=== PATIENT | female | born 1980 | race Caucasian/White ===

== ENCOUNTER 2016-06-11 13:56 | Emergency (ER) | payer OTHER ==
--- NOTE | 2016-06-11 14:33 | ERPHSYRPT ---
- History of Present Illness Time Seen by Provider: 06/11/16 14:29 Historian: patient Exam Limitations: no limitations Patient Subjective Stated Complaint: PT COMPLAINS OF UPPER ABDOMINAL PAIN X 2 DAYS STATES SHE HAS HAD SOME VOMITING WITH THE PAIN DENIES FEVER. DENIES PROBLMES WITH URINATION PT STATES PAIN IS WORSE WHEN SHE IS STANDING DENIES ANY PAIN AT THIS TIME. Triage Nursing Assessment: PT ALERT WARM AND DRY RESP EASY NON LABORED PTMABULTED. TO ROOM WITHOTU DIFFICULTY ABDOMEN SOFT NON TEDNER ON PALPATION. Physician History: 35-year-old morbidly obese white female arrives with complaint of pain in the upper abdomen described as sharp and crampy symptoms going on for 2 days. Patient states she had vomited 2 times on Wednesday 2 days ago him 3 times today she has not had any fevers. She questions whether she has been constipated however she has been taking laxatives since Wednesday. Past medical history includes high blood pressure, anxiety, asthma, leg edema. Past surgical history patient denies social history positive tobacco use patient denies alcohol or illicit drug use Timing/Duration: day(s) (2days) Activities at Onset: none Quality: cramping, sharpness Abdominal Pain Onset Location: other (bilateral upper quadrants) Pain Radiation: no radiation Severity of Pain-Max: moderate Severity of Pain-Current: moderate Modifying Factors: Improves With: nothing Associated Symptoms: nausea, vomiting, No back, No chest pain, No diaphoresis, No diarrhea, No fever/chills, No fatigue, No headache, No heartburn, No loss of appetite, No neck pain, No rash, No shortness of breath, No syncope Previous symptoms: no prior history Allergies/Adverse Reactions: codeine Allergy (Verified 06/11/16 14:04) Sulfa (Sulfonamide Antibiotics) Allergy (Verified 06/11/16 14:04) Hx Tetanus, Diphtheria Vaccination/Date Given: Yes Hx Influenza Vaccination/Date Given: No Hx Pneumococcal Vaccination/Date Given: No Immunizations Up to Date: Yes - Review of Systems Constitutional: No Fever, No Chills Eyes: No Symptoms Ears, Nose, & Throat: No Symptoms Respiratory: No Cough, No Dyspnea Cardiac: No Chest Pain, No Edema, No Syncope Abdominal/Gastrointestinal: Abdominal Pain, Nausea, Vomiting, No Diarrhea, No Constipation, No Hematemesis, No Hematochezia, No Melena, No Dysphagia, No Appetite Changes Genitourinary Symptoms: No Dysuria Musculoskeletal: No Back Pain, No Neck Pain Skin: No Rash Neurological: No Dizziness, No Focal Weakness, No Sensory Changes Psychological: No Symptoms Endocrine: No Symptoms All Other Systems: Reviewed and Negative - Past Medical History Pertinent Past Medical History: Yes Respiratory History: Asthma Other Medical History: HTN ANXIETY ,AND "PROBLEMS WITH LEG SWELLING" - Past Surgical History Past Surgical History: No - Social History Smoking Status: Current every day smoker How long have you smoked: 1/2 PPD Exposure to second hand smoke: Yes Drug Use: none Patient Lives Alone: No - Female History Hx Last Menstrual Period: May - Nursing Vital Signs Nursing Vital Signs: Initial Vital Signs Temperature 98.3 F Temperature Source Oral Pulse Rate 105 Respiratory Rate 18 Blood Pressure [] 148/105 - Physical Exam General Appearance: no apparent distress, alert Eye Exam: PERRL/EOMI, eyes nml inspection Ears, Nose, Throat Exam: normal ENT inspection, pharynx normal, moist mucous membranes Neck Exam: normal inspection, non-tender, supple, full range of motion Respiratory Exam: normal breath sounds, lungs clear, No respiratory distress Cardiovascular Exam: regular rate/rhythm, normal heart sounds Gastrointestinal/Abdomen Exam: normal bowel sounds, tenderness (tender bilateral upper abdomen, morbidly obese, ) Back Exam: normal inspection, normal range of motion, No CVA tenderness, No vertebral tenderness Extremity Exam: normal inspection, normal range of motion, pelvis stable Neurologic Exam: alert, oriented x 3, cooperative, normal mood/affect, nml cerebellar function, sensation nml, No motor deficits Skin Exam: normal color, warm, dry SpO2 Interpretation: normal (93%) SpO2: 93 Oxygen Delivery: Room Air - Course Nursing assessment & vital signs reviewed: Yes - CT Exams Abdomen/Pelvis CT Interpretation: Discussed w/radiologist (CT abdomen and pelvis: Impression: 1. Limited CT abdomen and pelvis due to body habitus 2. Large abdominal/ pelvic ascites 3. Bilateral lymphadenopathy. Also several smaller periaortic l findings may be reactive but cannot exclude malignancy in the right clinical setting. 4. Incidental hiatal hernia, borderline cardiomegaly, tiny bibasilar effusions, and evidence for old granulomatous disease) Ordered Tests: Active Orders 24 hr Category Date Time Status IV Insertion STAT Care 06/11/16 14:28 Active ABDOMEN AND PELVIS W CONTRAST [CT] Stat Exams 06/11/16 15:45 Completed AMYLASE Stat Lab 06/11/16 14:37 Completed CBC W DIFF Stat Lab 06/11/16 14:37 Completed CMP Stat Lab 06/11/16 14:37 Completed HCG QUALITATIVE,SERUM Stat Lab 06/11/16 14:37 Completed LIPASE Stat Lab 06/11/16 14:37 Completed UA W/ MICROSCOPIC Stat Lab 06/11/16 14:30 Completed Lab/Rad Data: Laboratory Result Diagrams 06/11/16 14:37 06/11/16 14:37 Laboratory Results 06/11/16 06/11/16 06/11/16 Range/Units 14:37 14:37 14:37 WBC 13.1 H (4.0-10.5) K/mm3 RBC 5.51 H (4.1-5.4) M/mm3 Hgb 15.2 (12.0-16.0) gm/dl Hct 46.8 (35-47) % MCV 84.9 (78-100) fl MCH 27.5 (26-32) pg MCHC 32.5 (32-36) g/dl RDW 13.7 (11.5-14.0) % Plt Count 343 (150-450) K/mm3 MPV 11.4 H (6-9.5) fl Gran % 78.0 H (36.0-66.0) % Lymphocytes % 11.2 L (24.0-44.0) % Monocytes % 10.2 (0.0-12.0) % Eosinophils % 0.3 (0.00-5.0) % Basophils % 0.3 (0.0-0.4) % Basophils # 0.04 (0-0.4) Sodium ORE MIXER Potassium 3.6 (3.5-5.1) mEq/L Chloride 92 L (98-107) mEq/L BUN 10 (9-20) mg/dL Creatinine 0.89 (0.55-1.30) mg/dl Estimated GFR > 60 ML/MIN Glucose 110 (70-110) MG/DL Calcium 9.7 (8.5-10.1) mg/dL Total Bilirubin 0.4 (0.2-1.0) mg/dL AST 19 (15-37) U/L ALT 19 (12-78) U/L Alkaline Phosphatase 59 (46-116) U/L Serum Total Protein 7.4 (6.4-8.2) gm/dL Albumin 3.0 L (3.4-5.0) g/dL Amylase 31 (25-115) U/L Lipase 75 (73-393) U/L Serum , Qual NEGATIVE (Negative) Ur Collection Type Urine Color (YELLOW) Urine Appearance (CLEAR) Urine pH (5-6) Ur Specific H[place]bert (1.005-1.025) Urine Protein (Negative) Urine Glucose (UA) (NEGATIVE) mg/dL Urine Ketones (NEGATIVE) Urine Nitrite (NEGATIVE) Urine Bilirubin (NEGATIVE) Urine Urobilinogen (0-1) mg/dL Urine WBC (Auto) (NEGATIVE) Urine RBC (Auto) (0-5) Ramon/ul Urine Microscopic WBC (0-5) /HPF Ur Epithelial Cells (FEW) /HPF Urine Bacteria (NEGATIVE) /HPF Hyaline Casts (0-2) /LPF Urine Mucus (NEGATIVE) /HPF Specimen Received 06/11/16 Range/Units 14:30 WBC (4.0-10.5) K/mm3 RBC (4.1-5.4) M/mm3 Hgb (12.0-16.0) gm/dl Hct (35-47) % MCV (78-100) fl MCH (26-32) pg MCHC (32-36) g/dl RDW (11.5-14.0) % Plt Count (150-450) K/mm3 MPV (6-9.5) fl Gran % (36.0-66.0) % Lymphocytes % (24.0-44.0) % Monocytes % (0.0-12.0) % Eosinophils % (0.00-5.0) % Basophils % (0.0-0.4) % Basophils # (0-0.4) Sodium Potassium (3.5-5.1) mEq/L Chloride (98-107) mEq/L BUN (9-20) mg/dL Creatinine (0.55-1.30) mg/dl Estimated GFR ML/MIN Glucose (70-110) MG/DL Calcium (8.5-10.1) mg/dL Total Bilirubin (0.2-1.0) mg/dL AST (15-37) U/L ALT (12-78) U/L Alkaline Phosphatase (46-116) U/L Serum Total Protein (6.4-8.2) gm/dL Albumin (3.4-5.0) g/dL Amylase (25-115) U/L Lipase (73-393) U/L Serum , Qual (Negative) Ur Collection Type VOID Urine Color YELLOW (YELLOW) Urine Appearance CLOUDY (CLEAR) Urine pH 5.5 (5-6) Ur Specific H[place]bert 1.025 (1.005-1.025) Urine Protein 30 (Negative) Urine Glucose (UA) NEGATIVE (NEGATIVE) mg/dL Urine Ketones NEGATIVE (NEGATIVE) Urine Nitrite NEGATIVE (NEGATIVE) Urine Bilirubin SMALL (NEGATIVE) Urine Urobilinogen 1 (0-1) mg/dL Urine WBC (Auto) NEGATIVE (NEGATIVE) Urine RBC (Auto) NEGATIVE (0-5) Ramon/ul Urine Microscopic WBC 2-5 (0-5) /HPF Ur Epithelial Cells MANY (FEW) /HPF Urine Bacteria MANY (NEGATIVE) /HPF Hyaline Casts 25-50 (0-2) /LPF Urine Mucus SLIGHT (NEGATIVE) /HPF Specimen Received 06/11/16 1340 - Progress Progress: improved Progress Note: 06/11/16 17:48 This is a 35-year-old morbidly obese white female who has been having pain in her upper abdomen described as crampy in nature worse for the past 2 days she states she has had some vomiting she thought that she was constipated she took some laxatives however this has not helped her. She arrives she does not appear to be in acute distress however she is tender with palpation in the upper abdomen patient has a white count of 13.1 hemoglobin 15.2 hematocrit 46.8 platelets are 343 patient's chemistry is essentially normal sodium was not available secondary to the analyzer being down CT of the abdomen shows a limited CT of the abdomen and pelvis due to body habitus, a large abdominal/pelvic ascites, bilateral lymphadenopathy in several smaller. Aortic lymph nodes finding could be reactive but cannot completely exclude malignancy in the right clinical setting There is also an incidental hiatal hernia borderline cardiomegaly tiny by basilar effusions and evidence for old granulomatous disease I've discussed the case with Dr. Mccain the patient's doctor. He would like the patient to follow-up with him as soon as possible to workup the patient's ascites. He felt the patient could be released and follow-up with him Will have her call his office tomorrow to schedule an appointment. Patient does have a listed allergy to codeine patient states this made her hallucinate when she was in the eighth grade. Will write for Gaston for pain. - Departure Time of Disposition: 17:53 Departure Disposition: Home Clinical Impression: Abdominal pain Qualifiers: Abdominal location: upper abdomen, unspecified Qualified Code(s): R10.10 - Upper abdominal pain, unspecified Ascites Qualifiers: Ascites type: other type Qualified Code(s): R18.8 - Other ascites Condition: Fair Critical Care Time: No Instructions: Abdominal Pain-Adult Additional Instructions: Return home. Clear fluids only 24-48 hours if abdominal pain. Gaston 5/325 #12 one orally every 4-6 hours as needed for pain. Zofran 4 mg one orally every 4-6 hours as needed for nausea. Follow-up with Dr. Mccain call tomorrow morning for an appointment return for acute distress or for severe symptoms. . Prescriptions: Hydrocodone Bit/Acetaminophen [Gaston 5/325Mg] 1 tab PO Q4-6HPRN PRN #12 tablet PRN Reason: Pain Ondansetron [Zofran Odt] 4 mg PO Q4-6HPRN PRN #12 tab.rapdis PRN Reason: nausea and vomiting
[2016-06-11 14:48] LABS: Collection Type VOID
[2016-06-11 14:49] LABS: COMPLETE URINE MICROSCOPIC? YES; Ph 5.5 (5-6)
[2016-06-11 14:52] LABS: BASOPHIL % 0.3 % (0.0-0.4); Eosinophil % 0.3 % (0.00-5.0); Lymphocytes % 11.2 % (24.0-44.0); Mean Cell Volume 84.9 fl (78-100); Mean Platelet Volume 11.4 fl (6-9.5); Monocytes % 10.2 % (0.0-12.0); Platelet Count 343 K/mm3 (150-450); Red Blood Count 5.51 M/mm3 (4.1-5.4); Red Cell Distribution Width 13.7 % (11.5-14.0); White Blood Count 13.1 K/mm3 (4.0-10.5)
[2016-06-11 15:01] LABS: Mean Corpuscular Hemoglobin 27.5 pg (26-32)
[2016-06-11 15:10] LABS: Bacteria MANY /HPF (NEGATIVE); Epithelial Cells MANY /HPF (FEW); Mucus SLIGHT /HPF (NEGATIVE)
[2016-06-11 15:11] LABS: Hyaline Casts 25-50 /LPF (0-2)
[2016-06-11 15:24] LABS: ALKALINE PHOSPHATASE 59 U/L (46-116); BILIRUBIN,TOTAL 0.4 mg/dL (0.2-1.0); BLOOD UREA NITROGEN 10 mg/dL (9-20); Glucose 110 MG/DL (70-110); LIPASE 75 U/L (73-393); SGOT/AST 19 U/L (15-37); SGPT/ALT 19 U/L (12-78); Total Protein 7.4 gm/dL (6.4-8.2)
--- NOTE | 2016-06-11 17:10 | XRAY ---
Indication: Abdominal pain, heartburn, and vomiting. Multiple contiguous axial images obtained through the abdomen and pelvis using 100 cc Isovue 370 contrast only. Comparison: None Lung bases demonstrates right middle lobe medial infiltrate/atelectasis and calcified granuloma. Tiny bibasilar effusions. Right infrahilar calcified nodes. Heart is borderline enlarged. Small hiatal hernia. Images through the abdomen and pelvis markedly limited due to patient body habitus. There is large amount of abdominal/pelvic ascites. Tiny calcified splenic granulomas. Several small periaortic nodes, largest 10 x 13 mm. There are additional bilateral prominent lymph nodes, largest on the left measuring 2.2 x 3.1 cm. Noncontrasted stomach and bowel loops appear nonobstructed. Remaining liver, gallbladder, pancreas, spleen, adrenal glands, kidneys, ureters, bladder, uterus, and aorta appear unremarkable. Osseous structures intact with minimal degenerative changes throughout the spine. Impression: 1. Limited CT abdomen/pelvis exam due to body habitus. 2. Large abdominal/pelvic ascites. 3. Bilateral lymphadenopathy. Also several smaller periaortic lymph nodes. Findings may be reactive but cannot completely exclude malignancy in the right clinical setting. 4. Incidental hiatal hernia, borderline cardiomegaly, tiny bibasilar effusions, and evidence for old granulomatous disease. CTDI 28.13
[2016-06-11 17:31] LABS: CHLORIDE 92 mEq/L (98-107); Potassium 3.6 mEq/L (3.5-5.1)
[2016-06-11 18:05] VITALS: BP 131/81; PULSE 87; O2SAT 100
[2016-06-11 19:57] LABS: SODIUM 137 mEq/L (136-145)
== END 2016-06-11 18:04 | disposition home or self-care (01) ==
LOC: ED 13:56
DX: R10.10 Upper abdominal pain, unspecified (principal); R18.8 Other ascites; E66.01 Morbid (severe) obesity due to excess calories; R11.2 Nausea with vomiting, unspecified; K44.9 Diaphragmatic hernia without obstruction or gangrene
CPT/HCPCS: 36000; 36415; 74177; 80053; 81000; 82150; 83690; 84703; 85025; 99284

== ENCOUNTER 2016-09-16 18:52 | Emergency (ER) | payer OTHER ==
[2016-09-16 19:09] LABS: BASOPHIL % 0.1 % (0.0-0.4); Eosinophil % 0.1 % (0.00-5.0); Granulocytes % 86.9 % (36.0-66.0); Lymphocytes % 6.6 % (24.0-44.0); Mean Cell Volume 78.7 fl (78-100); Monocytes % 6.3 % (0.0-12.0); Platelet Count 440 K/mm3 (150-450); Red Blood Count 6.48 M/mm3 (4.1-5.4); Red Cell Distribution Width 18.8 % (11.5-14.0); White Blood Count 11.4 K/mm3 (4.0-10.5)
--- NOTE | 2016-09-16 19:15 | ERPHSYRPT ---
- History of Present Illness Time Seen by Provider: 09/16/16 18:53 Source: patient, EMS Exam Limitations: no limitations Patient Subjective Stated Complaint: pt states she became weak this morning and had trouble getting off of toilet. pt states she "rocked a little to hard and fell to floor on hands and kness." pt denies any injury from fall. states she has weakness. Triage Nursing Assessment: pt pale, warm, dry. lung sounds clear and equal during ems breathing treatment. lips dry. pt alert and oriented x3. pt afebrile. bilateral lower extremities warm to touch and swollen with redness. Occurred: this morning Reason for Fall: lost balance Injuries/Pain Location: no injury Loss of Consciousness: no loss of consciousness Severity of Pain-Max: none Severity of Pain-Current: none Modifying Factors: Improves With: other (Morbid obesity.) Associated Symptoms (Fall): shortness of breath (with chronic asthma) Allergies/Adverse Reactions: codeine Allergy (Verified 09/16/16 19:00) Sulfa (Sulfonamide Antibiotics) Allergy (Verified 09/16/16 19:00) Home Medications: Acetaminophen [Acetaminophen Extra Strength] 1,000 mg PO Q4-6HPRN PRN 09/16/16 [ History] Albuterol 8 gm Mdi Hfa [Ventolin Hfa MDI] 8 gm IH Q4H PRN PRN 09/16/16 [ History] Hctz/Triamterene 75/50 mg [Maxzide 75/50] 1 tab PO DAILY 09/16/16 [History] Omeprazole 20 MG [Prilosec 20 mg] 20 mg PO DAILY 09/16/16 [History] Paroxetine HCl [Paxil] 20 mg PO DAILY 09/16/16 [History] Spironolactone 100 mg PO DAILY 09/16/16 [History] Hx Tetanus, Diphtheria Vaccination/Date Given: Yes (up to date) Hx Influenza Vaccination/Date Given: No Hx Pneumococcal Vaccination/Date Given: No Immunizations Up to Date: Yes - Review of Systems Constitutional: No Symptoms Eyes: No Symptoms Ears, Nose, & Throat: No Symptoms Respiratory: Wheezing Cardiac: No Symptoms Abdominal/Gastrointestinal: No Symptoms Musculoskeletal: Fall Skin: No Symptoms Neurological: No Symptoms Psychological: No Symptoms Endocrine: No Symptoms Hematologic/Lymphatic: No Symptoms Immunological/Allergic: No Symptoms - Past Medical History Pertinent Past Medical History: Yes Respiratory History: Asthma Other Medical History: HTN ANXIETY ,AND "PROBLEMS WITH LEG SWELLING". ascites - Past Surgical History Past Surgical History: No Other Surgical History: liver biopsy - Social History Smoking Status: Current every day smoker How long have you smoked: 16 Exposure to second hand smoke: Yes Drug Use: none Patient Lives Alone: No - Female History Hx Last Menstrual Period: 2 months - Nursing Vital Signs Nursing Vital Signs: Initial Vital Signs Temperature 98.2 F Temperature Source Oral Pulse Rate 102 Respiratory Rate 20 Blood Pressure [Right Arm] 93/56 Pain Intensity 0 - [place] Coma Score Best Eye Response ([place]): (4) open spontaneously Best Verbal Response (Elizabet): (5) oriented Best Motor Response (Elizabet): (6) obeys commands [place] Total: 15 - Physical Exam General Appearance: no apparent distress Head Injury: no evidence of injury Eye Exam: PERRL/EOMI, eyes nml inspection ENT Exam: airway nml Neck Exam: supple, trachea midline, full range of motion, normal alignment Respiratory/Chest Exam: normal breath sounds Cardiovascular Exam: normal heart sounds, regular rate/rhythm, normal peripheral pulses, edema (severe brawny non-pitting edema) Gastrointestinal Exam: soft, normal bowel sounds, No tenderness Back Exam: normal inspection, normal range of motion Extremity Exam: normal range of motion, capillary refill <3 sec Neurologic Exam: alert, oriented x 3, cooperative Skin Exam: normal color, warm, dry SpO2 Interpretation: normal SpO2: 97 Oxygen Delivery: Room Air - Course Nursing assessment & vital signs reviewed: Yes EKG Interpreted by Me: RATE (96), Sinus Rhythm, NORMAL AXIS, Other (Low voltage with electrical spikes. No acute ischemia.) Ordered Tests: Active Orders 24 hr Category Date Time Status Cath for Specimen-Straight STAT Care 09/16/16 18:57 Active EKG-ER Only STAT Care 09/16/16 18:57 Active CHEST 1 VIEW (PORTABLE) Stat Exams 09/16/16 18:57 Ordered BNP [NT PRO BNP] Stat Lab 09/16/16 19:30 Received CBC W DIFF Stat Lab 09/16/16 19:00 Completed CK-Creatinine Phosphokinase Stat Lab 09/16/16 19:30 Received CMP Stat Lab 09/16/16 19:00 Completed HCG,QUALITATIVE URINE Stat Lab 09/16/16 19:03 Uncollected PROTIME WITH INR Stat Lab 09/16/16 19:00 Completed UA W/RFX UR CULTURE Stat Lab 09/16/16 18:57 Ordered Medication Summary Generic Name Dose Route Start Last Admin Trade Name Keyonna PRN Reason Stop Dose Admin Sodium Chloride 1,000 mls @ 999 mls/hr 09/16/16 20:41 09/16/16 20:50 Sodium Chloride 0.9% 1000 Ml IV 09/16/16 21:41 999 mls/hr .Q1H1M STA Administration Discontinued Medications Generic Name Dose Route Start Last Admin Trade Name Keyonna PRN Reason Stop Dose Admin Sodium Chloride Confirm 09/16/16 20:46 Sodium Chloride 0.9% 1000 Ml Administered 09/16/16 20:47 Dose 1,000 mls @ ud .ROUTE .STK-MED ONE Morphine Sulfate 2 mg 09/16/16 21:04 Morphine Sulfate 2 Mg Inj IV 09/16/16 21:05 STAT ONE Lab/Rad Data: Laboratory Result Diagrams 09/16/16 19:00 09/16/16 19:00 Laboratory Results 09/16/16 09/16/16 09/16/16 Range/Units 19:00 19:00 19:00 WBC 11.4 H (4.0-10.5) K/mm3 RBC 6.48 H* (4.1-5.4) M/mm3 Hgb 17.5 H (12.0-16.0) gm/dl Hct 51.0 H (35-47) % MCV 78.7 (78-100) fl MCH 27.0 (26-32) pg MCHC 34.3 (32-36) g/dl RDW 18.8 H (11.5-14.0) % Plt Count 440 (150-450) K/mm3 MPV 12.0 H (6-9.5) fl Gran % 86.9 H (36.0-66.0) % Lymphocytes % 6.6 L (24.0-44.0) % Monocytes % 6.3 (0.0-12.0) % Eosinophils % 0.1 (0.00-5.0) % Basophils % 0.1 (0.0-0.4) % Basophils # 0.01 (0-0.4) INR 1.11 (0.8-3.0) Sodium 127 L (136-145) mEq/L Potassium 5.9 H (3.5-5.1) mEq/L Chloride 92 L (98-107) mEq/L Carbon Dioxide 23.0 (21-32) mEq/L Anion Gap 18.2 H (5-15) MEQ/L BUN 68 H (9-20) mg/dL Creatinine 3.19 H (0.55-1.30) mg/dl Estimated GFR 17 ML/MIN Glucose 87 (70-110) MG/DL Calcium 8.4 L (8.5-10.1) mg/dL Total Bilirubin 0.40 (0.2-1.0) mg/dL AST 33 (15-37) U/L ALT 40 (12-78) U/L Alkaline Phosphatase 91 (46-116) U/L Serum Total Protein 5.6 L (6.4-8.2) gm/dL Albumin 1.8 L (3.4-5.0) g/dL - Progress Progress: improved Discussed with .: Other (Care transferred to Dr. Rachel who will make transfer arrangements.) Counseled pt/family regarding: lab results, diagnosis, need for follow-up, rad results - Departure Time of Disposition: 20:45 Departure Disposition: Transfer Clinical Impression: Hyponatremia, EMA (acute kidney injury), Hyperkalemia Morbid obesity Qualifiers: Obesity type: unspecified obesity type Qualified Code(s): E66.01 - Morbid ( severe) obesity due to excess calories Condition: Serious Critical Care Time: No Referrals: NINA MANRIQUEZ [Primary Care Provider] -
[2016-09-16 19:32] LABS: BILIRUBIN,TOTAL 0.4 mg/dL (0.2-1.0); Total Protein 5.6 gm/dL (6.4-8.2)
[2016-09-16 20:13] LABS: ALBUMIN 1.8 g/dL (3.4-5.0); ANION GAP 18.2 MEQ/L (5-15); Potassium 5.9 mEq/L (3.5-5.1)
[2016-09-16 20:21] LABS: INR 1.11 (0.8-3.0); PROTIME 12.5 SECONDS (9.95-12.35)
[2016-09-16] MEDS ORDERED: Sodium Chloride 0.9% 1000 ML 1,000 ML IV STA (20:41)
[2016-09-16] MEDS ORDERED: Sodium Chloride 0.9% 1000 ML 1,000 ML ONE (20:46)
[2016-09-16] MEDS ORDERED: MORPHINE SULFATE 2 MG INJ IV ONE (21:04)
[2016-09-16] MEDS ORDERED: MORPHINE SULFATE 2 MG INJ ONE (21:11)
[2016-09-16 21:19] VITALS: O2SAT 96
[2016-09-16 21:28] LABS: Bacteria FEW /HPF (NEGATIVE); COMPLETE URINE MICROSCOPIC? YES; Collection Type CATH; Epithelial Cells FEW /HPF (FEW); Mucus MODERATE /HPF (NEGATIVE)
[2016-09-16 21:29] LABS: ADD URINE CULTURE? NO (NO)
[2016-09-16 22:03] VITALS: BP 92/52; PULSE 114
--- NOTE | 2016-09-17 08:50 | XRAY ---
Indication: Dyspnea. Comparison: June 12, 2016. Portable chest again demonstrates mediastinal and pulmonary calcified granulomas. No focal infiltrate, consolidation, or large effusion. Heart is not enlarged for AP portable technique. Vascularity normal. Bony thorax intact. Impression: Nonacute chest. Again evidence for old granulomatous disease.
== END 2016-09-16 22:38 | disposition short-term general hospital (02) ==
LOC: ED 18:52
DX: E87.1 Hypo-osmolality and hyponatremia (principal); N17.9 Acute kidney failure, unspecified; E87.5 Hyperkalemia; E66.01 Morbid (severe) obesity due to excess calories
CPT/HCPCS: 36415; 71010; 80053; 81000; 82550; 83880; 84703; 85025; 85610; 93005; 96360; 99285; J2270; P9612

== ENCOUNTER 2016-10-04 22:32 | Emergency (ER) | payer OTHER ==
--- NOTE | 2016-10-04 23:33 | ERPHSYRPT ---
- History of Present Illness Time Seen by Provider: 10/04/16 23:28 Source: patient Exam Limitations: no limitations Patient Subjective Stated Complaint: C/O INTERMITENT SOB/RESP DISTRESS WORSE AROUND 2100 CALLED EMS BUT JUST PRIOR PT TOOK ONE DUEONEB AT HOME AND ONE PUFF FROM HER INHALIER, WANTED TO GO TO [facility] BUT CHANGED HER MIND AND REQUESTED MICHAEL. Triage Nursing Assessment: C/O INTERMITENT SOB/RESP DISTRESS WORSE AROUND 2100 CALLED EMS BUT JUST PRIOR PT TOOK ONE DUEONEB AT HOME AND ONE PUFF FROM HER INHALIER, WANTED TO GO TO [facility] BUT CHANGED HER MIND AND REQUESTED MICHAEL. DC'D FROM [facility] AFTER 2 WEEK INPT STAY LAST WEDNESDAY. AOX3, PATIENT VERY ANXIOUS, RESTING MUCH BETTER AT THIS TIME. ALSO C/O NAUSEA AND DIARRHEA FOR 3+ WEEKS, DIALYSIS PT TIFFANIE [place], [place] Physician History: 35-year-old morbidly obese white female with history of high blood pressure, asthma, anxiety, leg edema, ascites, who is on dialysis 3 times a week arrives with complaint of shortness of breath feeling "woozy symptoms since yesterday after receiving a medication for nausea she states that this evening at around 9 :00 she began to become markedly short of breath she states that she took a DuoNeb treatment as well as using a puffer he was brought by the medics she initially stated that she wanted to go to [facility] however she started feeling worse so she asked to go to [facility] instead She arrives complaining of feeling dizzy week she was markedly anxious and short of breath on arrival she is much less anxious at this time still has some shortness of breath. She states she is nauseous and has had been having diarrhea for approximately 3 weeks. Past medical history includes high blood pressure, anxiety, asthma, leg edema, ascites, renal failure on dialysis Past surgical history includes liver biopsy Timing/Duration: yesterday Severity: moderate Modifying Factors: Improves With: nothing Associated Symptoms: nausea, shortness of breath, cough, malaise, other ( dizzinessdizzyness), No vomiting, No abdominal pain, No heartburn, No diaphoresis, No chills, No chest pain, No fever, No headaches, No loss of appetite, No rash, No syncope, No seizure, No weakness Allergies/Adverse Reactions: codeine Allergy (Verified 10/04/16 23:40) Sulfa (Sulfonamide Antibiotics) Allergy (Verified 10/04/16 23:40) Home Medications: Acetaminophen [Acetaminophen Extra Strength] 1,000 mg PO Q4-6HPRN PRN 09/16/16 [ History] Albuterol 8 gm Mdi Hfa [Ventolin Hfa MDI] 8 gm IH Q4H PRN PRN 09/16/16 [ History] Hctz/Triamterene 75/50 mg [Maxzide 75/50] 1 tab PO DAILY 09/16/16 [History] Omeprazole 20 MG [Prilosec 20 mg] 20 mg PO DAILY 09/16/16 [History] Paroxetine HCl [Paxil] 20 mg PO DAILY 09/16/16 [History] Spironolactone 100 mg PO DAILY 09/16/16 [History] Hx Tetanus, Diphtheria Vaccination/Date Given: Yes (up to date) Hx Influenza Vaccination/Date Given: No Hx Pneumococcal Vaccination/Date Given: No Immunizations Up to Date: Yes - Review of Systems Constitutional: Other (dizzyness), No Fever, No Chills Eyes: No Symptoms Ears, Nose, & Throat: No Symptoms Respiratory: Dyspnea, Wheezing Cardiac: No Chest Pain, No Edema, No Syncope Abdominal/Gastrointestinal: Nausea, Diarrhea, No Abdominal Pain, No Vomiting, No Constipation, No Hematemesis, No Hematochezia, No Melena, No Dysphagia, No Appetite Changes Genitourinary Symptoms: No Dysuria Musculoskeletal: No Back Pain, No Neck Pain Skin: No Rash Neurological: Dizziness, No Focal Weakness, No Sensory Changes Psychological: No Symptoms Endocrine: No Symptoms All Other Systems: Reviewed and Negative - Past Medical History Pertinent Past Medical History: Yes Neurological History: No Pertinent History ENT History: No Pertinent History Cardiac History: Coronary Artery Disease Respiratory History: Asthma Endocrine Medical History: Liver Disease Musculoskeletal History: No Pertinent History GI Medical History: GERD History: Dialysis, Renal Disease Psycho-Social History: Anxiety Female Reproductive Disorders: No Pertinent History Other Medical History: PERMA CATH RIGHT UPPER CHEST 1 WEEK OLD - Past Surgical History Past Surgical History: No Neuro Surgical History: No Pertinent History Cardiac: No Pertinent History Respiratory: No Pertinent History Gastrointestinal: No Pertinent History Genitourinary: No Pertinent History Musculoskeletal: No Pertinent History Female Surgical History: No Pertinent History Other Surgical History: liver biopsy - Social History Smoking Status: Light tobacco smoker How long have you smoked: 16 Exposure to second hand smoke: No Drug Use: none Patient Lives Alone: Yes (FAMILY) - Female History Hx Last Menstrual Period: T-60 - Nursing Vital Signs Nursing Vital Signs: Initial Vital Signs Temperature 97.4 F Temperature Source Oral Pulse Rate 114 Respiratory Rate 32 Blood Pressure [] 112/76 Pain Intensity 0 - Physical Exam General Appearance: other Eye Exam: PERRL/EOMI, eyes nml inspection Ears, Nose, Throat Exam: normal ENT inspection, TMs normal, pharynx normal, moist mucous membranes Neck Exam: normal inspection, non-tender, supple, full range of motion Respiratory Exam: diminished breath sounds, No wheezing Cardiovascular Exam: regular rate/rhythm, normal heart sounds, normal peripheral pulses Gastrointestinal/Abdomen Exam: soft, normal bowel sounds, No tenderness, No mass Back Exam: normal inspection, normal range of motion, No CVA tenderness, No vertebral tenderness Extremity Exam: normal inspection, normal range of motion, pelvis stable, other (bilateral lymphedema) Neurologic Exam: alert, oriented x 3, cooperative, normal mood/affect, nml cerebellar function, nml station & gait, sensation nml, No motor deficits Skin Exam: pale Lymphatic Exam: No adenopathy SpO2 Interpretation: normal (92%) SpO2: 95 Oxygen Delivery: Nasal Cannula - Course Nursing assessment & vital signs reviewed: Yes EKG Interpreted by Me: RATE (113 bpm), Sinus Tach, NORMAL AXIS, Other (EKG: Sinus tachycardia 113 bpm, normal axis, moderate amount of artifact, no acute ST or T wavee changes noted) - Radiology Exams Chest X-ray Interpretation: Interpreted by me, Other (blunting of the costophrenic angles oncerning for fluid overload) Ordered Tests: Active Orders 24 hr Category Date Time Status Wind Project Manager STAT Care 10/04/16 23:26 Active EKG-ER Only STAT Care 10/05/16 00:26 Active IV Insertion STAT Care 10/04/16 23:26 Active Oxygen-ED Only NASAL CANNULA 3 lpm Care 10/04/16 23:26 Active Pulse Oximetry (ED) STAT Care 10/04/16 23:26 Active CHEST 1 VIEW (PORTABLE) Stat Exams 10/04/16 23:27 Taken ARTERIAL BLOOD GASES Stat Lab 10/04/16 23:45 Completed CBC W DIFF Stat Lab 10/04/16 23:45 Completed CMP Stat Lab 10/04/16 23:45 Completed D-DIMER QUANTITATION Stat Lab 10/04/16 23:45 Completed Lactic Acid Stat Lab 10/05/16 01:53 Ordered Lactic Acid Urgent Lab 10/04/16 23:52 Completed Manual Differential NC Stat Lab 10/04/16 23:45 Completed NT PRO BNP Stat Lab 10/04/16 23:45 Completed TROPONIN Stat Lab 10/04/16 23:45 Completed Respiratory Nebulizer STAT RT 10/05/16 00:33 Completed Medication Summary Generic Name Dose Route Start Last Admin Trade Name Freq PRN Reason Stop Dose Admin Ceftriaxone Sodium/Dextrose 1 g in 50 mls @ 100 mls/hr 10/05/16 02:13 02:23 Rocephin 1 Gm-D5w 50 Ml Bag IV 10/05/16 02:42 100 mls/hr STAT STA Administration Discontinued Medications Generic Name Dose Route Start Last Admin Trade Name Freq PRN Reason Stop Dose Admin Acetaminophen 650 mg 10/05/16 01:13 10/05/16 01:22 Tylenol 325 Mg PO 10/05/16 01:14 650 mg STAT ONE Administration Acetaminophen Confirm 10/05/16 01:19 Tylenol 325 Mg Administered 10/05/16 01:20 Dose 650 mg .ROUTE .STK-MED ONE Albuterol Sulfate 2.5 mg 10/05/16 00:32 10/05/16 00:38 Proventil 2.5 Mg/3 Ml Neb IH 10/05/16 00:33 2.5 mg STAT ONE Administration Albuterol Sulfate Confirm 10/05/16 00:38 Proventil 2.5 Mg/3 Ml Neb Administered 10/05/16 00:39 Dose 2.5 mg IH .STK-MED ONE Ceftriaxone Sodium Confirm 10/05/16 02:17 Rocephin 1000 Mg Inj Administered 10/05/16 02:18 Dose 1,000 mg .ROUTE .STK-MED ONE Furosemide 40 mg 10/05/16 00:31 10/05/16 00:45 Lasix 40 Mg/4 Ml IV 10/05/16 00:32 40 mg STAT ONE Administration Furosemide Confirm 10/05/16 00:43 Lasix 40 Mg/4 Ml Administered 10/05/16 00:44 Dose 40 mg .ROUTE .STK-MED ONE Ceftazidime 1 g/ Dextrose 100 mls @ 200 mls/hr 10/05/16 06:00 IV 11/04/16 05:59 Q8HT ANGELA Ceftriaxone Sodium/Dextrose Confirm 10/05/16 02:18 Rocephin 1 Gm-D5w 50 Ml Bag Administered 10/05/16 02:19 Dose 1 g in 50 mls @ ud IV .STK-MED ONE Methylprednisolone Sodium Succinate 125 mg 10/05/16 00:32 10/05/16 00:45 Solu-Medrol 125 Mg IV 10/05/16 00:33 125 mg STAT ONE Administration Methylprednisolone Sodium Succinate Confirm 10/05/16 00:43 Solu-Medrol 125 Mg Administered 10/05/16 00:44 Dose 125 mg .ROUTE .STK-MED ONE Ondansetron HCl Confirm 10/04/16 23:48 Zofran 4 Mg/2 Ml Vial Administered 10/04/16 23:49 Dose 4 mg .ROUTE .STK-MED ONE Lab/Rad Data: Laboratory Result Diagrams 10/04/16 23:45 10/04/16 23:45 Laboratory Results 10/04/16 10/04/16 10/04/16 Range/Units 23:52 23:45 23:45 WBC (4.0-10.5) K/mm3 RBC (4.1-5.4) M/mm3 Hgb (12.0-16.0) gm/dl Hct (35-47) % MCV (78-100) fl MCH (26-32) pg MCHC (32-36) g/dl RDW (11.5-14.0) % Plt Count (150-450) K/mm3 MPV (6-9.5) fl Segmented Neutrophils (36.0-66.0) % Lymphocytes (Manual) (24-44) % Monocytes (Manual) (0.0-12.0) % Differential Comment Platelet Estimate (NORMAL) D-Dimer 2556.72 H* (0.00-500.00) ng/mL Puncture Site pCO2 (35-45) mmHg pO2 (75-100) mmHg Base Excess (-2.0-2.0) O2 Saturation (94-100) g/dF ABG pH (7.35-7.45) ABG HCO3 (22-28) ABG O2 Sat (Measured) (95-100) % Jhony Test A-a Gradient a/A Ratio Hemoglobin Carboxyhemoglobin (0.0-6.9) % THgb Methemoglobin (1.4-1.5) % Potassium 4.7 (3.5-5.1) Temperature C POC O2 Flow Rate % Sodium 132 L (136-145) mEq/L Chloride 94 L (98-107) mEq/L Carbon Dioxide 18.7 L (21-32) mEq/L Anion Gap 24.1 H (5-15) MEQ/L BUN 35 H (9-20) mg/dL Creatinine 6.01 H (0.55-1.30) mg/dl Estimated GFR 8 ML/MIN Glucose 118 H (70-110) MG/DL Lactic Acid 4.1 H (0.4-2.0) Calcium 8.8 (8.5-10.1) mg/dL Total Bilirubin 0.50 (0.2-1.0) mg/dL AST 31 (15-37) U/L ALT 27 (12-78) U/L Alkaline Phosphatase 123 H (46-116) U/L Troponin I 0.040 (0.000-0.056) ng/ml NT-Pro-B Natriuret Pep 8214 H (0-125) pg/ml Serum Total Protein 5.3 L (6.4-8.2) gm/dL Albumin 2.5 L (3.4-5.0) g/dL 10/04/16 10/04/16 Range/Units 23:45 23:45 WBC 18.5 H (4.0-10.5) K/mm3 RBC 5.58 H (4.1-5.4) M/mm3 Hgb 15.5 (12.0-16.0) gm/dl Hct 45.1 (35-47) % MCV 80.8 (78-100) fl MCH 27.7 (26-32) pg MCHC 34.4 (32-36) g/dl RDW 20.2 H (11.5-14.0) % Plt Count 203 (150-450) K/mm3 MPV 12.0 H (6-9.5) fl Segmented Neutrophils 92 H (36.0-66.0) % Lymphocytes (Manual) 3 L (24-44) % Monocytes (Manual) 5 (0.0-12.0) % Differential Comment NORMAL Platelet Estimate NORMAL (NORMAL) D-Dimer (0.00-500.00) ng/mL Puncture Site RIGHT RADIAL pCO2 35 (35-45) mmHg pO2 87 (75-100) mmHg Base Excess -4.8 L (-2.0-2.0) O2 Saturation 94.8 (94-100) g/dF ABG pH 7.36 (7.35-7.45) ABG HCO3 19.8 L (22-28) ABG O2 Sat (Measured) 98.6 (95-100) % Jhony Test NO A-a Gradient 69 a/A Ratio 0.56 Hemoglobin 15.8 Carboxyhemoglobin 3.0 (0.0-6.9) % THgb Methemoglobin 0.9 L (1.4-1.5) % Potassium 4.5 (3.5-5.1) Temperature 37.0 C POC O2 Flow Rate 28 % Sodium (136-145) mEq/L Chloride (98-107) mEq/L Carbon Dioxide (21-32) mEq/L Anion Gap (5-15) MEQ/L BUN (9-20) mg/dL Creatinine (0.55-1.30) mg/dl Estimated GFR ML/MIN Glucose (70-110) MG/DL Lactic Acid (0.4-2.0) Calcium (8.5-10.1) mg/dL Total Bilirubin (0.2-1.0) mg/dL AST (15-37) U/L ALT (12-78) U/L Alkaline Phosphatase (46-116) U/L Troponin I (0.000-0.056) ng/ml NT-Pro-B Natriuret Pep (0-125) pg/ml Serum Total Protein (6.4-8.2) gm/dL Albumin (3.4-5.0) g/dL - Progress Progress: improved Progress Note: 10/05/16 00:33 35-year-old white female with history of asthma, renal failure on dialysis complains of being short of breath since yesterday worse since this evening. Patient arrives hyperventilating. She has used a DuoNeb treatment prior to arrival also puff off of her inhaler. Chest x-ray on this patient some blunting of the costophrenic angle otherwise negative. Awaiting EKG from the nurses. ABGs pH 7.36 PCO2 35 PO2 87 bicarbonate 19.8 sats 98.6 chemistry BUN is 35 creatinine 6.01 glucose 118 BNP 8214 Troponin 0.040. Lactate 4.1 Impression asthma with exacerbation, 2. Chronic renal failure. Plan Will give patient Solu-Medrol 125 IV Lasix 40 mg IV will give patient albuterol. Review patient's EKG ... 10/05/16 01:46 Case is discussed with hospitalist at the [facility] they requested that I discuss this with the renal physician electronics detail draftsperson for Dr. Mcintyre, I discuss case with Dr. Lynch he has excepted the patient to [facility]. I have discussed the fact that the patient had a lactate of 4.4 d-dimer 2556 and BNP of 8214 Patient's troponin was normal Because of the patient's renal dialysis an elevated BNP with blunting of the costophrenic angle patient was not given IV of fluids at this time. She was given Lasix as well as Solu-Medrol and albuterol. Will go ahead and give patient Rocephin 1 g IV - Departure Time of Disposition: 01:48 Departure Disposition: Transfer ([facility] Dr Lynch) Clinical Impression: Asthma exacerbation, Shortness of breath Renal failure Qualifiers: Renal failure chronicity: unspecified chronicity Qualified Code(s): N19 - Unspecified kidney failure CHF (congestive heart failure) Qualifiers: Congestive heart failure type: unspecified congestive heart failure type Congestive heart failure chronicity: unspecified congestive heart failure chronicity Qualified Code(s): I50.9 - Heart failure, unspecified Condition: Fair Critical Care Time: No Referrals: NINA MANRIQUEZ [Primary Care Provider] - Instructions: Heart Failure
[2016-10-04] MEDS ORDERED: Zofran 4 MG/2 ML VIAL ONE (23:48)
[2016-10-04 23:51] LABS: A-aADO2 69; ALLEN TEST OK? NO; ARTERIAL BLD GAS O2 SATURATION 98.6 % (95-100); ARTERIAL BLOOD GAS BASE EXCESS -4.8 (-2.0-2.0); ARTERIAL BLOOD GAS FIO2 28 %; ARTERIAL BLOOD GAS PO2 87 mmHg (75-100); ARTERIAL BLOOD GAS pH 7.36 (7.35-7.45)
[2016-10-04 23:53] LABS: Lactic Acid 4.1 (0.4-2.0)
[2016-10-04 23:53] LABS: Mean Cell Volume 80.8 fl (78-100); Platelet Count 203 K/mm3 (150-450); Red Blood Count 5.58 M/mm3 (4.1-5.4); Red Cell Distribution Width 20.2 % (11.5-14.0); White Blood Count 18.5 K/mm3 (4.0-10.5)
[2016-10-05 00:17] LABS: Mean Corpuscular Hemoglobin 27.7 pg (26-32)
[2016-10-05 00:24] LABS: ALBUMIN 2.5 g/dL (3.4-5.0); ANION GAP 24.1 MEQ/L (5-15); BILIRUBIN,TOTAL 0.5 mg/dL (0.2-1.0); Carbon Dioxide 18.7 mEq/L (21-32); Potassium 4.7 mEq/L (3.5-5.1); TROPONIN 0.04 ng/ml (0.000-0.056); Total Protein 5.3 gm/dL (6.4-8.2)
[2016-10-05] MEDS ORDERED: Lasix 40 MG/4 ML IV ONE (00:31)
[2016-10-05] MEDS ORDERED: solu-MEDROL 125 MG IV ONE (00:32)
[2016-10-05] MEDS ORDERED: PROVENTIL 2.5 MG/3 ML NEB IH ONE ×2 (00:32→00:38)
[2016-10-05] MEDS ORDERED: Lasix 40 MG/4 ML ONE (00:43)
[2016-10-05] MEDS ORDERED: solu-MEDROL 125 MG ONE (00:43)
[2016-10-05] MEDS ORDERED: TYLENOL 325 MG PO ONE (01:13)
[2016-10-05] MEDS ORDERED: TYLENOL 325 MG ONE (01:19)
[2016-10-05 01:52] LABS: Platelet Estimate NORMAL (NORMAL); Total Cells Counted 100
[2016-10-05] MEDS ORDERED: ROCEPHIN 1 Gm-D5w 50 ml Bag** 1 G/50 ML IVPB IV STA (02:13)
[2016-10-05] MEDS ORDERED: Rocephin 1000 MG INJ ONE (02:17)
[2016-10-05] MEDS ORDERED: ROCEPHIN 1 Gm-D5w 50 ml Bag** 1 G/50 ML IVPB IV ONE (02:18)
[2016-10-05] MEDS ORDERED: Zofran 4 MG/2 ML VIAL ONE (02:24)
[2016-10-05] MEDS ORDERED: Zofran 4 MG/2 ML VIAL IV ONE ×2 (02:24→05:59)
[2016-10-05 02:50] VITALS: BP 102/76; PULSE 88; O2SAT 94
[2016-10-05] MEDS ORDERED: Fortaz/Tazicef 1 GM** 1 G in Dextrose 5%/Water IV Soln. 100ML PLUS BAG 100 ML IV SCH (06:00)
--- NOTE | 2016-10-05 09:10 | XRAY ---
Indication: Short of breath. Comparison: September 16, 2016. Portable chest demonstrates new bibasilar infiltrates/atelectasis/effusion without cardiomegaly. New right sided double lumen dialysis catheter without complications.
== END 2016-10-05 02:45 | disposition short-term general hospital (02) ==
LOC: ED 22:32
DX: N19 Unspecified kidney failure (principal); I50.9 Heart failure, unspecified; Z99.2 Dependence on renal dialysis; R06.02 Shortness of breath; R06.4 Hyperventilation; J45.901 Unspecified asthma with (acute) exacerbation; Z79.899 Other long term (current) drug therapy
CPT/HCPCS: 36000; 36415; 36600; 71010; 80053; 82375; 82803; 83605; 83880; 84484; 85025; 85379; 87040; 93005; 93041; 94640; 96360; 96365; 96374; 96375; 99285; J0696; J1940; J2405; J2930; A9270-GY